=== PATIENT | female | born 1955 | race Two or more races ===

== ENCOUNTER 2021-12-06 12:49 | Day surgery (SDC) | payer MEDICARE, MEDICAID ==
[2021-12-04 11:09] LABS: Basophils # (auto) 0.1 10 ^3/uL (0-0.2); Basophils % (auto) 0.8 % (0.0-2.0); Eosinophils # (auto) 0.1 10 ^3/uL (0-0.8); Eosinophils % (auto) 1.2 % (0.0-7.0); Hematocrit 40.4 % (36.0-46.0); Hemoglobin 13.8 g/dL (12.2-16.2); Lymphocytes # (auto) 2.9 10 ^3/uL (0.4-5.4); Lymphocytes % (auto) 37.7 % (10.0-50.0); Mean Corpuscular Hemoglobin 31.1 pg (28.0-32.0); Mean Corpuscular Hgb Conc. 34.2 g/dL (32.0-36.0); Mean Corpuscular Volume 90.9 fL (80.0-100.0); Monocytes # (auto) 0.3 10 ^3/uL (0-1.3); Monocytes % (auto) 3.9 % (0.0-12.0); Neutrophils # (auto) 4.3 10 ^3/uL (1.6-8.6); Neutrophils % (auto) 56.4 % (37.0-80.0); Nucleated Red Blood Cells % 0.1 %; Red Blood Cells 4.44 10^6/uL (4.0-5.20); Red Cell Distribution Width 13.5 % (11.8-14.3); White Blood Cell 7.6 10^3/uL (4.4-10.8)
[2021-12-04 11:37] LABS: INR 0.89 (0.9-1.15); Partial Thromboplastin Time 24.8 sec (24.6-33.4)
[2021-12-04 11:59] LABS: Potassium 3.5 mmol/L (3.5-5.1)
[2021-12-04 12:10] LABS: Albumin 3.4 g/dL (3.4-5.0); BUN/Creatinine Ratio 19.3; Bilirubin, Total 1.7 mg/dL (0.2-1.0); Calcium 8.8 mg/dL (8.5-10.1); Total Protein 7.3 g/dL (6.4-8.2)
[~2021-12-06] VITALS: Ht 152.4 cm; Wt 95.3 kg
[~2021-12-06 12:49] MED LIST: CYCL0.05 OP; DONE1TAB88 PO; GLIP10TA9 PO; IBUP800T27 PO; MEMA28CA OR; METO200T42; VERA240T17 PO
[2021-12-06] MEDS ORDERED: SODIUM CHLORIDE LOCK 10 ML ONE (14:35)
[2021-12-06] MEDS ORDERED: LIDOCAINE VISCOUS 2% 15ML UD ONE (14:36)
[2021-12-06] MEDS: diphenhdrAMINE HCL 50 MG/1 ML VL ONE ×2 (14:37→15:06)
[2021-12-06] MEDS: fentaNYL CITRATE 100 MCG/2 ML VL ONE ×2 (14:37→15:07)
[2021-12-06] MEDS: MIDAZOLAM HCL 5 MG/ML-1ML VIAL ONE ×3 (14:37→15:10)
[2021-12-06 15:25] VITALS: BP 156/82
== END 2021-12-06 15:40 | disposition home or self-care (01) ==
LOC: GI 12:49
PROVIDERS: ATTEND Internal Medicine Gastroenterology
DX: R11.2 Nausea with vomiting, unspecified (principal); K29.50 Unspecified chronic gastritis without bleeding; K31.89 Other diseases of stomach and duodenum; I10 Essential (primary) hypertension; E11.9 Type 2 diabetes mellitus without complications; G30.9 Alzheimer's disease, unspecified; Z90.49 Acquired absence of other specified parts of digestive tract; Z98.51 Tubal ligation status; Z20.822 Contact with and (suspected) exposure to COVID-19
CPT/HCPCS: 36415; 43239; 80053; 82962; 85025; 85610; 85730; 88305; 88342; J1200; J2250; J3010; J7030; U0003; G0500